=== PATIENT | female | born 1945 | race Hispanic/Latino ===

== ENCOUNTER 2024-11-21 16:49 | Emergency (ER) | payer MEDICARE, OTHER ==
[~2024-11-21] VITALS: Ht 149.9 cm; Wt 93.4 kg
[2024-11-21 17:36] LABS: BASOPHILS # (AUTO) 0.05 K/uL (0.00-0.20); BASOPHILS % (AUTO) 0.5 % (0.0-5.0); EOSINOPHILS # (AUTO) 0.46 K/uL (0.00-0.70); EOSINOPHILS % (AUTO) 4.8 % (0.0-8.0); HEMATOCRIT 36.6 % (36-48); IMMATURE GRANULOCYTE ABSOLUTE 0.04 K/uL (0-1); LYMPHOCYTES # (AUTO) 2.7 K/uL (1.0-4.8); LYMPHOCYTES % (AUTO) 27.9 % (21.0-51.0); MEAN CORPUSCULAR HEMOGLOBIN 30.7 pg (27.0-33.0); MEAN CORPUSCULAR HGB CONC 32.8 g/dL (32.0-36.0); MEAN CORPUSCULAR VOLUME 93.6 fL (79-99); MONOCYTES # (AUTO) 0.6 K/uL (0.1-1.0); MONOCYTES % (AUTO) 5.8 % (3.0-13.0); NEUTROPHILS # (AUTO) 5.8 K/uL (1.8-7.7); NEUTROPHILS % (AUTO) 60.6 % (40.0-77.0); PLATELET COUNT (AUTO) 299 K/uL (130-400); RED BLOOD CELL COUNT(AUTO) 3.91 MIL/uL (4.00-5.50); RED CELL DISTRIBUTION WIDTH 12.9 % (11.0-15.5); WHITE BLOOD COUNT (AUTO) 9.6 K/uL (4.8-10.8)
--- NOTE | 2024-11-21 17:45 | CONS ---
CONSULT NOTE: [facility] # Demographics Consult Type: Acute Stroke Level 1 (0-4.5 hrs) Patient Location: Emergency Room First Name: VEE Last Name: ARBEN Date of : 1945 Age: 79 Gender: Female Facility: [facility] Time of Initial Page (Central Time): 11/21/2024 17:38 Time of Return Call (Central Time): 11/21/2024 17:38 # HPI History: 79yof with HTN, DM, HLD who p/w dizziness and dysarthria. Noticed symptoms when she woke up this AM. On ASA 81mg at home. Last Known Normal: - I have collected independent history specific to time last normal or last known well. We have collaborated with the provider and at this time, we have the most current timeline with the information that is available. 10PM previous night # Scores Time of exam and NIHSS (Central Time): 11/21/2024 17:41 Level of Consciousness 1a: [0] = Alert; keenly responsive LOC Questions 1b: [0] = Answers both questions correctly LOC Commands 1c: [0] = Performs both tasks correctly Best Gaze 2: [0] = Normal Visual 3: [0] = No visual loss Facial Palsy 4: [0] = Normal symmetrical movements Motor Arm Left 5a: [0] = No drift Motor Arm Right 5b: [0] = No drift Motor Leg Left 6a: [0] = No drift Motor Leg Right 6b: [0] = No drift Limb Ataxia 7: [0] = Absent Sensory 8: [0] = Normal Best Language 9: [0] = No aphasia Dysarthria 10: [1] = Dugo-nu-ttivtxnf dysarthria Extinction and Inattention 11: [0] = No abnormality NIHSS Total: 1 # Plan Thrombolytic/Intervention: NOT IV Thrombolysis or IA Intervention candidate Thrombolytic Exclusion: > 4.5 hours Intraarterial Exclusion: - clinical exam not consistent with presence of large vessel occlusion (LVO), can reconsider if LVO found on vascular imaging Imaging: (urgency: STAT): - CT Angiogram Head and CT Angiogram Neck AND call back with results if abnormal Imaging: (urgency: routine): - MRI Brain without contrast Diagnostic Test: Fabiano Hallpike maneuver Medication: Trial with meclizine Other: - If patient has any neurological deterioration please call me back immediately - callback neurology if brain imaging reveals moderate to large cerebellar infarct - I have discussed my recommendations with the referring provider - would not pursue stroke work-up if MRI is negative # Logistics Attestation of consult completion: The patient is located at: [facility]. Facility staff participated in the visit. I performed this telemedicine visit from my offsite office utilizing interactive 2 way audio and visual telecommunication technology. Total time spent in telemedicine encounter: I spent 26 minutes reviewing clinical data and/or imaging, obtaining history, examining the patient, communicating with the onsite care team, and in preparation of this report. # Demographics First Name: VEE Last Name: ARBEN Facility: [facility] DOUGLAS POLO MD Nov 21, 2024 17:45
--- NOTE | 2024-11-21 17:50 | NUR ---
SOC PERFORMED BEDSIDE STUDY WITH NURSE AND FAMILY
--- NOTE | 2024-11-21 17:51 | ERN ---
General Chief Complaint: Slurred Speech Stated Complaint: WEAKNESS Time Seen by MD: 17:17 Time Seen by Midlevel: 17:17 Source: patient, family History of Present Illness Initial Comments 79-year-old female presents to the ED for evaluation of slurred speech onset this morning. Family reports left facial droop, weakness and dizziness, but deny any other associated symptoms at this time. As per family patient symptoms began in the morning, but became more pronounced at 4:30 p.m.. LWK- this morning. Allergies: Coded Allergies: No Known Drug Allergies (Unverified Allergy, Unknown, 12/04/23) Home Meds Reported Medications [Amlo] No Conflict Check, 1 TAB PO DAILY 11/21/24 Insulin Glargine,Hum.rec.anlog (Lantus Solostar) 100 Unit/Ml (3 Ml) Insuln.pen, 40 UNIT SQ DAILY for 30 Days, #15 ML 0 Refills 11/21/24 Metformin HCl (Metformin HCl) 1,000 Mg Tablet, 1 TAB PO BID for 30 Days, #60 TAB 0 Refills 11/21/24 Atorvastatin Calcium (LIPITOR) 20 Mg Tab, 1 TAB PO HS for 30 Days, #30 TAB 0 Refills 11/21/24 Levothyroxine Sodium (Levothyroxine) 88 Mcg Capsule, 1 CAP PO DAILY for 30 Days, #30 CAP 0 Refills 11/21/24 Past Medical History Past Medical History: Diabetes-Type II, High Cholesterol, Hypertension, Hypothyroid Past Surgical History: Hysterectomy Surgical History Other: COLON RESECTION ROS Dictation Constitutional: Negative for fever,chills, and weight loss Eyes: Negative for injury, pain,redness, and discharge ENT: Negative for injury,pain or swelling Cardiovascular: Negative for chest pain, palpitations, and edema Respiratory: Negative for shortness of breath, cough, and wheezing, Abdomen/GI: Negative for abdominal pain, nausea, vomiting, diarrhea, and constipation Back: Negative for injury and pain : Negative for injury, bleeding and discharge MS/Extremity: Negative for injury and deformity Skin: Negative for rash, and discoloration Neuro: Positive for slurred speech, left facial droop, dizziness and weakness Psych: Negative for suicide ideation, homicidal ideation, and hallucinations Physical Exam Physical Exam Dictation General: awake, alert, NAD Head/Face: Normocephalic, atraumatic Eyes: PERRL, EOMI, vision at baseline ENT: oral cavity clear, TMs clear, no signs of infection Neck: Trachea midline, supple, no nuchal rigidity Cardiovascular: RRR, normal S1/S2, No MRGs, no JVD Respiratory: CTAB, no respiratory distress, No rales or wheezes Abdomen: Soft, non-tender, non-distended, normal bowel sounds, no guarding or rebound. Skin: Warm, dry, normal turgor, no rash MS/Extremity: Pulses equal, no cyanosis, neurovascular intact, FROM Neuro: COAx4, GCS 15, strength 5/5, CN 2-12 intact, normal cerebellar exam, normal gait, Psych: Normal behavior, mood, and affect normal NIH STROKE SCALE: NIH STROKE SCALE Response (Comments) Value Level of Consciousness Alert 0 Ask patient month and their age Answers both correct 0 Command to open eyes, make fist and let go Obeys both correct 0 Best gaze (horizontal eye movement) Normal 0 Visual Field Testing No Visual Field Loss 0 Facial Paresis Normal / Symmetrical 0 Motor Function - Left Arm Normal 0 Motor Function - Right Arm Normal 0 Motor Function - Left Leg Normal 0 Motor Function - Right Leg Normal 0 Limb Ataxia No Ataxia 0 Sensory-pin prick to arms, legs, trunk and face Normal 0 Best Language (describe picture, name items and read) No Aphasia 0 Dysarthria (read several words) Mild-Mod. Slurring Words 1 Extinction and Inattention Normal 0 Total 1 Results Laboratory and Microbiology Lab and Micro Result Laboratory Tests Test 11/21/24 17:17 11/21/24 17:28 11/21/24 18:23 Whole Blood Glucose 226 MG/DL (70-110) H White Blood Count 9.6 K/uL (4.8-10.8) Red Blood Count 3.91 MIL/uL (4.00-5.50) L Hemoglobin 12.0 g/dL (12.0-16.0) Hematocrit 36.6 % (36-48) Mean Corpuscular Volume 93.6 fL (79-99) Mean Corpuscular Hemoglobin 30.7 pg (27.0-33.0) Mean Corpuscular Hemoglobin Concent 32.8 g/dL (32.0-36.0) Red Cell Distribution Width 12.9 % (11.0-15.5) Platelet Count 299 K/uL (130-400) Mean Platelet Volume 11.3 fL (7.5-10.5) H Immature Granulocyte % (Auto) 0.4 % (0-1) Neutrophils (%) (Auto) 60.6 % (40.0-77.0) Lymphocytes (%) (Auto) 27.9 % (21.0-51.0) Monocytes (%) (Auto) 5.8 % (3.0-13.0) Eosinophils (%) (Auto) 4.8 % (0.0-8.0) Basophils (%) (Auto) 0.5 % (0.0-5.0) Neutrophils # (Auto) 5.8 K/uL (1.8-7.7) Lymphocytes # (Auto) 2.7 K/uL (1.0-4.8) Monocytes # (Auto) 0.6 K/uL (0.1-1.0) Eosinophils # (Auto) 0.46 K/uL (0.00-0.70) Basophils # (Auto) 0.05 K/uL (0.00-0.20) Absolute Immature Granulocyte (auto 0.04 K/uL (0-1) Nucleated Red Blood Cells 0.0 % (0.0-0.19) Sodium Level 142 mmol/L (136-145) Potassium Level 5.0 mmol/L (3.5-5.1) Chloride Level 106 mmol/L (101-111) Carbon Dioxide Level 29 mmol/L (21-32) Blood Urea Nitrogen 28 mg/dL (7-18) H Creatinine 1.3 mg/dL (0.5-1.0) H Glomerular Filtration Rate Calc 42 mL/min (>90) Random Glucose 236 mg/dL (70-105) H Total Calcium 9.3 mg/dL (8.5-10.1) Total Creatine Kinase 111 U/L (21-232) # Troponin I High Sensitivity 9 ng/L (4-50) B-Type Natriuretic Peptide 100 pg/mL (0-100) LDL Cholesterol 64 mg/dL (0-99) Urine Color LIGHT-YELLOW (YELLOW) Urine Appearance CLOUDY (CLEAR) H Urine pH 5.5 (5.0-8.0) Urine Specific [place] 1.014 (1.001-1.031) Urine Protein 200 mg/dL (NEGATIVE) H Urine Glucose (UA) NEGATIVE mg/dL (NEGATIVE) Urine Ketones NEGATIVE mg/dL (NEGATIVE) Urine Occult Blood NEGATIVE (NEGATIVE) Urine Nitrate NEGATIVE (NEGATIVE) Urine Bilirubin NEGATIVE mg/dL (NEGATIVE) Urine Urobilinogen 0.2 mg/dL (0.2-1.0) Urine Leukocyte Esterase 250 Cortney/uL (NEGATIVE) H Urine RBC 2-5 /HPF (0-1) H Urine WBC 26-50 /HPF (0-1) H Urine Squamous Epithelial Cells RARE /HPF (0-2) Urine Bacteria FEW /HPF (None Seen) Labs Reviewed?: Yes MDM MDM: The patient is a 79 year old female with a past medical history of type 2 diabetes, hypertension, high cholesterol, and hypothyroidism presenting to the emergency department for evaluation of slurred speech. According to the family member who is at bedside the patient developed slurred speech this morning but progressively worsened throughout the day. At approximately 4:00 p.m. another family member noticed an increase in slurred speech so they decided to report to the ER for further evaluation. On arrival with the patient is in no acute distress. Initial vital signs are remarkable for a blood pressure of 173/75. She was alert and oriented x4 she was able to answer my questions and follow commands. She has an NIH of one based on her dysarthria. She has 5/5 strength to bilateral upper and lower extremities. Sensation is intact. There was no facial droop. A stroke workup was initiated. CT scan of the head without contrast does not reveal an intracranial bleed. Tele neurology was consulted who recommends obtaining CT angiogram and MRI of the brain given the patient's comorbidities and age. A CT angiogram of the head and neck was performed which reveals a high-grade stenosis of the right internal carotid artery. Her CBC shows a normal white blood cell count of 9.6. Her hemoglobin is stable at 12.0. Her platelet count is 299. Her chemistries show a slightly elevated BUN 28 and creatinine 1.3. The patient was given 1 L of IV fluids. She was a whole blood glucose of 226. Her cardiac enzymes are negative. Her LDL is normal at 64. Her urinalysis does not show any evidence of infection. Transfer was initiated since we do not have Neurology in-house. The case was discussed with hospitalist over at [facility]. The case was also discussed with ER doctor over at [facility] who agreed to accept the patient. Differential diagnosis: CVA versus TIA, vertigo Evaluated patient alongside ER physician Dr. Velasquez Rationale: Tests considered and ordered secondary to shared decision making include: labs, ECG and radiology Previous outside records reviewed: Old ER visits. Risk of complication and/or morbidity or mortality of patient management: None Medications-Per medication reconciliation Need for hospitalization: Patient does meet criteria for hospitalization. Need for emergency major/minor surgery: No There are no social concerns with this patient. Prescription drug management Prescriptions will include symptomatic care Patient's prior external medical records from other ER visits were reviewed by me as indicated. Prior testing and results from previous visits were reviewed. Prior tests were taken into account with medical decision making and resource utilization, independent historian/historians were used to obtain complete medical history. I independently interpreted the test that were performed, results were reviewed by me and considered findings on radiology if ordered. Medical management and examination interpretation discussions were had by me with other qualified healthcare professionals as indicated for the patient's care. ED Course Orders Procedure Category Date Status Time Cbc With Differential LAB 11/21/24 Complete 17:22 Ct Head/Brain W/O CT 11/21/24 Resulted Contrast 17:22 Chest 1vw RAD 11/21/24 Resulted 17:22 12 Lead Ekg Tracing- EKG 11/21/24 Complete Technical 17:22 Creatine Kinase, Total LAB 11/21/24 Complete 17:22 Ldl Direct LAB 11/21/24 Complete 17:22 Troponin I High LAB 11/21/24 Complete Sensitivity 17:22 Urinalysis Profile LAB 11/21/24 Complete 17:22 B-Type Natriuretic LAB 11/21/24 Complete Peptide 17:22 Bedside Glucose CPOE 11/21/24 Transmitted Fingerstick 17:22 Neurological Vs Q4hrs JOHN 11/21/24 Transmitted 17:22 Vital Signs Per CPOE 11/21/24 Transmitted Routine 17:22 Cardiac Monitoring CPOE 11/21/24 Transmitted 17:22 Pulse Ox(Continuous) RT 11/21/24 Transmitted 17:22 Complete Nih Stroke CPOE 11/21/24 Transmitted Scale 17:22 Basic Metabolic Panel LAB 11/21/24 Complete 17:22 Ct Angio Head And Neck CT 11/21/24 Resulted 18:09 Iohexol (Omnipaque) PHA 11/21/24 Complete 18:39 Culture Urine DI 11/21/24 Complete 19:12 0.9%Nacl 1000ml (Ns PHA 11/21/24 Complete 1000ml) 20:00 Aspirin 325mg Tab PHA 11/21/24 Complete (Aspirin 325mg Tab) 22:00 Current Medications Medications (Trade) Dose Ordered Sig/[place] Route PRN Reason Start Time Stop Time Status Last Admin Dose Admin Aspirin (Aspirin 325mg Tab) 325 mg ONCE ONCE PO 11/21/24 22:00 11/21/24 22:01 DC 11/21/24 22:20 Iohexol (Omnipaque) 75 ml STK-MED ONCE IV 11/21/24 18:39 11/21/24 18:39 DC Sodium Chloride 1,000 ml @ 0 mls/hr ONCE ONCE IV 11/21/24 20:00 11/21/24 20:01 DC 11/21/24 19:52 Vital Signs Date Time Temp Pulse Resp B/P (MAP) Pulse Ox O2 Delivery O2 Flow Rate FiO2 11/22/24 00:20 98.1 75 18 168/65 97 Room Air* 0 11/21/24 23:30 98.2 73 18 173/62 95 Room Air* 0 11/21/24 22:30 98.2 80 18 165/68 97 Room Air* 0 21 11/21/24 21:30 98.2 80 18 168/66 97 Room Air* 0 21 11/21/24 20:30 98.1 77 18 161/58 97 Room Air* 0 11/21/24 19:10 98.1 73 18 151/43 95 Room Air* 0 11/21/24 18:15 98.1 81 18 155/77 95 Room Air* 0 11/21/24 17:40 85 18 165/90 95 Room Air* 0 11/21/24 17:18 98.1 89 20 173/75 97 Room Air [place] [address] [address] IMAGING REPORT Signed PATIENT: VEE THEODORE MR#: [id number] : 1945 SEX: F AGE: 79 LOCATION: ED ORDER [id number] STATUS: REG [facility] REPORT#: [id number] SERVICE 172 REASON: cp ORDERING PHYSICIAN: LION COOK PROCEDURE: CXR1VW - CHEST 1VW PORTABLE CHEST RADIOGRAPH INDICATION: cp COMPARISON: 09/04/2015 FINDINGS: laboratory monitor leads overlie the field of view. Heart size is normal. The pulmonary vascularity and мария appear normal. No abnormal pulmonary parenchymal opacity or consolidation identified. No significant pleural effusion noted. No pneumothorax detected. IMPRESSION: No radiographic evidence for any acute cardiopulmonary process. DICTATED BY: RORO GALAN MD DATE: 11/21/241845 ELECTRONICALLY SIGNED BY: RORO GALAN MD DATE: 11/21/241848 [address] [address] IMAGING REPORT Signed PATIENT: VEE THEODORE MR#: [id number] : 1945 SEX: F AGE: 79 LOCATION: [facility]H ORDER 23 STATUS: REG REPORT#: [id number] SERVICE 172 REASON: slurred speech ORDERING PHYSICIAN: LION COOK PROCEDURE: HEAD WO - CT HEAD/BRAIN W/O CONTRAST CT HEAD WITHOUT CONTRAST INDICATION: Slurred speech TECHNIQUE: Noncontrast axial helical CT images from the vertex through the skull base using 5 mm slice thickness without contrast material. Coronal and sagittal reconstructions were also included. Dose reduction techniques was used using integrated, automated and adaptive dose reduction exposure control. CT was performed with one or more of the following dose reduction techniques: Automated exposure control, adjustment of the mA and/or kV according to patient size, or use of iterative reconstruction technique. COMPARISON: 12/04/2023 FINDINGS: Scattered and coalescent subcortical and periventricular white matter low attenuating areas likely represent residual of chronic small vessel arteriopathy and/or remote vascular insult. Generalized mild cerebral cortical atrophy is present.. No evidence for abnormal extra-axial fluid collections or masses. The ventricles and sulci are normal in size and configuration. No evidence for intracranial parenchymal, epidural, or subdural hemorrhage, mass effect or midline shift. The blankenship-white matter differentiation is well preserved. No secondary evidence to suggest acute ischemia. Mild calcific plaque is present along the feliz of the cavernous segments of both internal carotid arteries. The brainstem and cerebellum appear normal. The visualized orbits appear unremarkable. The visible paranasal sinuses and mastoid air cells are clear. The calvarium appears normal. IMPRESSION: Chronic white matter ischemic changes, mild brain atrophy, and arteriosclerotic disease as described, without acute component. DICTATED BY: RORO GALAN MD DATE: 11/21/241821 ELECTRONICALLY SIGNED BY: RORO GALAN MD DATE: 11/21/241824 [facility] [address] [place] [address] IMAGING REPORT Signed PATIENT: VEE THEODORE MR#: [id number] : 1945 SEX: F AGE: 79 LOCATION: [facility] ORDER 10 STATUS: REG REPORT#: [id number] SERVICE 08 REASON: slurred speech ORDERING PHYSICIAN: LION COOK PROCEDURE: CTA [facility] - CT ANGIO HEAD AND NECK CT ANGIO HEAD AND NECK HISTORY: slurred speech TECHNIQUE: CT ANGIO HEAD AND NECK. The study was performed using angiographic technique with maximum intensity projection reconstruction images. CT was performed with one or more of the following dose reduction techniques: Automated exposure control, adjustment of the mA and/or kV according to the patient's size, or use of the iterative reconstruction technique. Contrast: 75 cc of Omnipaque. Comparison: CT head performed on the same date. FINDINGS: The visualized bilateral vertebral and basilar arteries are patent. No significant stenosis in the posterior cerebral arteries. High-grade stenosis in the proximal right ICA. No significant stenosis seen in the bilateral anterior cerebral and middle cerebral arteries up to the bifurcation. No CT evidence of cerebral aneurysm or abnormal arteriovenous communication is seen. Diffuse atherosclerosis changes are present. IMPRESSION: High-grade stenosis in the proximal right ICA. DICTATED BY: SEBASTIAN NICOLAS MD DATE: 11/21/242010 ELECTRONICALLY SIGNED BY: SEBASTIAN NICOLAS MD DATE: 11/21/242016 Critical Care Note Critical Time: other (Total critical care time was 33 minutes. Excluding time for procedures. Management of critically ill patient with concern for acute decompensation. Management included interpretation of laboratory values and imaging, hemodynamics, time for consultation with consultants and admitting physician.) DX & DISP Disposition: Transfer ([facility]) Departure Impression: Primary Impression: Stenosis of right internal carotid artery Additional Impression: Slurred speech Condition: Stable Referrals: ROSA MARIA COOK MD (PCP) I have reviewed, & agreed with my scribe's, documentation. (I, Sawyer Law, am scribing for FIDEL Cook) I performed the substantive portion of the visit. I have reviewed and personally made and approve the management plan that is documented in the notes by myself or the KIRTI. I acknowledge full responsibility for the patient's management plan. I personally scribed for LION COOK ([email or web address]) on 11/21/24 at 17:51. Electronically submitted by Sawyer Law ([email or web address]). I personally scribed for LION COOK ([email or web address]) on 11/21/24 at 17:53. Electronically submitted by Sawyer Law ([email or web address]). LION COOK Nov 21, 2024 17:51 JACQUES VELASQUEZ MD Nov 22, 2024 10:45
[2024-11-21 17:52] LABS: CREATININE 1.3 mg/dL (0.5-1.0)
[2024-11-21] MEDS ORDERED: METF-446 PO (18:00)
[2024-11-21] MEDS ORDERED: ATOR10 PO (18:00)
[2024-11-21] MEDS ORDERED: AMLO PO (18:00)
[2024-11-21] MEDS ORDERED: INSU3INS3 SQ (18:00)
[2024-11-21] MEDS ORDERED: LEVO88CA4 PO (18:00)
[2024-11-21 18:07] LABS: B-TYPE NATRIURETIC PEPTIDE 100 pg/mL (0-100)
--- NOTE | 2024-11-21 18:25 | HMCIMG ---
CT HEAD WITHOUT CONTRAST INDICATION: Slurred speech TECHNIQUE: Noncontrast axial helical CT images from the vertex through the skull base using 5 mm slice thickness without contrast material. Coronal and sagittal reconstructions were also included. Dose reduction techniques was used using integrated, automated and adaptive dose reduction exposure control. CT was performed with one or more of the following dose reduction techniques: Automated exposure control, adjustment of the mA and/or kV according to patient size, or use of iterative reconstruction technique. COMPARISON: 12/04/2023 FINDINGS: Scattered and coalescent subcortical and periventricular white matter low attenuating areas likely represent residual of chronic small vessel arteriopathy and/or remote vascular insult. Generalized mild cerebral cortical atrophy is present.. No evidence for abnormal extra-axial fluid collections or masses. The ventricles and sulci are normal in size and configuration. No evidence for intracranial parenchymal, epidural, or subdural hemorrhage, mass effect or midline shift. The blankenship-white matter differentiation is well preserved. No secondary evidence to suggest acute ischemia. Mild calcific plaque is present along the feliz of the cavernous segments of both internal carotid arteries. The brainstem and cerebellum appear normal. The visualized orbits appear unremarkable. The visible paranasal sinuses and mastoid air cells are clear. The calvarium appears normal. IMPRESSION: Chronic white matter ischemic changes, mild brain atrophy, and arteriosclerotic disease as described, without acute component.
[2024-11-21] MEDS ORDERED: IOHEXOL-350 75 ML VIAL IV ONE (18:39)
--- NOTE | 2024-11-21 18:49 | HMCIMG ---
PORTABLE CHEST RADIOGRAPH INDICATION: cp COMPARISON: 09/04/2015 FINDINGS: mill attendant leads overlie the field of view. Heart size is normal. The pulmonary vascularity and мария appear normal. No abnormal pulmonary parenchymal opacity or consolidation identified. No significant pleural effusion noted. No pneumothorax detected. IMPRESSION: No radiographic evidence for any acute cardiopulmonary process.
[2024-11-21 19:06] LABS: APPEARANCE,URINE CLOUDY (CLEAR); BILIRUBIN,URINE NEGATIVE (NEGATIVE); COLOR,URINE LIGHT-YELLOW (YELLOW); GLUCOSE, URINE (UA) NEGATIVE (NEGATIVE); KETONES,URINE NEGATIVE (NEGATIVE); LEUKOCYTE ESTERASE ,URINE 250 Leu/uL (NEGATIVE); NITRATE,URINE NEGATIVE (NEGATIVE); OCCULT BLOOD,URINE NEGATIVE (NEGATIVE); PH,URINE 5.5 (5.0-8.0); PROTEIN,URINE 200 mg/dL (NEGATIVE); UROBILINOGEN,URINE 0.2 mg/dL (0.2-1.0)
[2024-11-21 19:12] LABS: ADD UA MICROSCOPIC YES
[2024-11-21 19:17] LABS: BACTERIA,URINE FEW /HPF (None Seen); MUCUS,URINE RARE LPF (None Seen); SQUAMOUS EPITHELIAL CELL,UR RARE /HPF (0-2); WBC,URINE 26-50 /HPF (0-1)
[2024-11-21] MEDS: 0.9%NACL 1000ML 1,000 ML IV ONE (19:52)
--- NOTE | 2024-11-21 20:17 | HMCIMG ---
CT ANGIO HEAD AND NECK HISTORY: slurred speech TECHNIQUE: CT ANGIO HEAD AND NECK. The study was performed using angiographic technique with maximum intensity projection reconstruction images. CT was performed with one or more of the following dose reduction techniques: Automated exposure control, adjustment of the mA and/or kV according to the patient's size, or use of the iterative reconstruction technique. Contrast: 75 cc of Omnipaque. Comparison: CT head performed on the same date. FINDINGS: The visualized bilateral vertebral and basilar arteries are patent. No significant stenosis in the posterior cerebral arteries. High-grade stenosis in the proximal right ICA. No significant stenosis seen in the bilateral anterior cerebral and middle cerebral arteries up to the bifurcation. No CT evidence of cerebral aneurysm or abnormal arteriovenous communication is seen. Diffuse atherosclerosis changes are present. IMPRESSION: High-grade stenosis in the proximal right ICA.
[2024-11-21] MEDS: ASPIRIN 325MG TAB PO ONE (22:20)
--- NOTE | 2024-11-21 22:42 | NUR ---
REPORT CALLED TO RENAN RODGERS AT [facility] [phone]
[2024-11-22 00:20] VITALS: BP 168/65; PULSE 75; RESP 18; TEMP 98; O2SAT 97
--- NOTE | 2024-11-22 07:40 | EKG ---
[facility] Test Date: 2024-11-21 Test Time: 17:29:44 Pat Name: VEE THEODORE Department: ED Room: Gender: F Product Design Engineer: [id number] : 1945 Requested By: LION COOK Order Number: [id number] Reading MD: Rk Ramirez Measurements Intervals [place] Rate: 90 P: 58 VA: 141 QRS: 10 QRSD: 93 T: 144 QT: 349 QTc: 427 Interpretive Statements Sinus rhythm Left ventricular hypertrophy Repol abnrm, severe global ischemia (LM/MVD) Compared to ECG 12/04/2023 18:10:33 Possible ischemia now present Electronically Signed On 11-22-2024 19:12:34 FIELD SALES ASSOCIATE by Rk Ramirez Please click the below link to view image of tracing.
== END 2024-11-22 00:27 | disposition short-term general hospital (02) ==
LOC: EDH 16:49
DX: I65.21 Occlusion and stenosis of right carotid artery (principal); R47.81 Slurred speech; E03.9 Hypothyroidism, unspecified; E11.9 Type 2 diabetes mellitus without complications; E78.00 Pure hypercholesterolemia, unspecified; I10 Essential (primary) hypertension; Z79.4 Long term (current) use of insulin; Z79.84 Long term (current) use of oral hypoglycemic drugs; Z79.890 Hormone replacement therapy; Z90.710 Acquired absence of both cervix and uterus
CPT/HCPCS: 99291; 70496; 96360; 71045; 96361; 82550; 83721; 84484; 80048; 83880; 85025; 87086 ×2; 87186; 82948; 81001; 36415; 70498; 93005; 70450; J7030; Q9967